=== PATIENT | female | born 1975 | race Caucasian/White ===

== ENCOUNTER 2022-04-06 03:31 | Emergency (ER) | payer OTHER ==
[2022-04-06 05:15] LABS: BASOPHIL 0.3 % (0-2); EOSINOPHIL 0.1 % (0-5); HCT 40.5 % (37.0-47.0); HGB 13.6 g/dl (12.5-16.0); LYMPHOCYTE 14.7 % (15-48); MCH 30.6 pg (25.0-31.0); MCHC 33.6 g/dL (32.0-36.0); MCV 91.2 fL (78.0-100.0); MONOCYTE 7.1 % (0-12); MPV 9.2 fL (6.0-9.5); NEUTROPHIL 77.4 % (41-80); NRBC 0; PLT 402 K/uL (150-400); RBC 4.44 M/uL (4.20-5.40); RDW 13.1 % (11.5-14.0); WBC 15.6 K/uL (4.0-10.5)
[2022-04-06 05:35] LABS: BILIRUBIN NEGATIVE (NEGATIVE); BLOOD TRACE-LYSED Ery/uL (NEGATIVE); CLARITY CLEAR (CLEAR); COLOR YELLOW (YELLOW); GLUCOSE (U) NORMAL (NORMAL); LEUKOCYTES TRACE Leu/uL (NEGATIVE); NITRITE NEGATIVE (NEGATIVE); PROTEIN 1+ mg/dL (NEGATIVE); UROBILINOGEN 0.2 mg/dL (0.2-1.0); pH 6.5 (5.0-9.0)
[2022-04-06 05:39] LABS: ECSTASY (MDMA) POSITIVE (NEGATIVE); MARIJUANA (THC) NEGATIVE (NEGATIVE)
[2022-04-06 05:40] LABS: BARBITURATES NEGATIVE (NEGATIVE); METHADONE NEGATIVE (NEGATIVE); OPIATES POSITIVE (NEGATIVE)
[2022-04-06 05:41] LABS: AMPHETAMINES NEGATIVE (NEGATIVE); OXYCODONE POSITIVE (NEGATIVE)
[2022-04-06 05:42] LABS: ALBUMIN 3.8 g/dL (3.4-5.0); ALKALINE PHOSHATASE 82 U/L (46-116); ALT 20 U/L (14-59); AST 27 U/L (15-37); BILIRUBIN - TOTAL 0.6 mg/dL (0.2-1.0); BUN 17 mg/dL (7-18); BUN/CREAT RATIO (CALC) 16.2 RATIO; CHLORIDE 102 mmol/L (98-107); CO2 (BICARBONATE) 24 mmol/L (21-32); CREATININE 1.05 mg/dL (0.51-0.95); GLOBULIN (CALCULATION) 2.9 g/dL; GLUCOSE 148 mg/dL (74-106); LIPASE 243 U/L (73-393); POTASSIUM 3.8 mmol/L (3.5-5.1); TOTAL PROTEIN 6.7 g/dL (6.4-8.2)
[2022-04-06 05:43] LABS: LACTIC ACID 3.1 mmol/L (0.4-1.9)
[2022-04-06 05:45] LABS: BACTERIA TRACE
[2022-04-06 09:50] LABS: CORONAVIRUS 2019 SARS-COV-2 NEGATIVE (NEGATIVE); INFLUENZA A NAA NEGATIVE (NEGATIVE)
== END 2022-04-06 20:46 | disposition home or self-care (01) ==
LOC: FER 03:31
PROVIDERS: Emergency Medicine; Internal Medicine
DX: T40.601A Poisoning by unspecified narcotics, accidental (unintentional), initial encounter (principal); E87.2 Acidosis; Z20.822 Contact with and (suspected) exposure to COVID-19
CPT/HCPCS: 36415; 36600; 70450; 71045; 80053; 80305; 81001; 82803; 83605; 83690; 84145; 84484; 85025; 87040; 93005; 96365; 96375; 96376; G0480; J2060; J2250; J2310; J2543; J2704; J3010; J7030; J7120; U0002